=== PATIENT | female | born 1960 | race Caucasian/White ===

== ENCOUNTER 2024-06-17 08:37 | Inpatient (IN) | payer MEDICARE, SELFPAY ==
[2024-06-15] VITALS (9 sets, daily range): BP systolic 101–146; BP diastolic 54–84; BMI 42.7; BMI 41.6
--- NOTE | 2024-06-15 06:33 | ED.GENMED ---
History of Present Illness
General
Chief Complaint: Breathing Problem
Source: patient and ambulance crew
Exam Limitations: none
Time Seen by Provider: 06/15/24 06:22
Nursing documentation reviewed up to this point in time: agreed with
History of Present Illness
History of Present Illness:
63-year-old female presents emergency room complaining of left flank/left-sided chest pain since yesterday. She was sitting working when the pain came on. She denies any specific injury. It hurts when she moves.
Past History
Past History
ED Past Medical History: Hypothyroidism
ED Past Surgical History: Cholecystectomy, , Orthopedic (Tib-fib repair) and Other (Gastric sleeve)
Social History
Tobacco: Non-smoker
Alcohol: None
Drug: None
Personal:
Living: with family
Employment: Employed
Review of Systems
Review of Systems
Allergies reviewed?: Yes
All Other Systems: Not applicable
Constitutional: Reports no symptoms
EENT: Reports no symptoms
Respiratory: Reports trouble breathing
Cardiac: Reports chest pain
ABD/GI: Reports no symptoms
: Reports flank pain; Denies dysuria
Musculoskeletal: Reports no symptoms
Skin: Reports no symptoms
Neurological: Reports no symptoms
Endocrine: Reports no symptoms
Hematologic/Lymphatic: Reports no symptoms
Psychiatric: Reports no symptoms
Phy Exam
Physical Exam
Physical Exam:
Physical Exam
General: no apparent distress, not acutely ill
Neck: supple. no meningeal signs. normal posterior pharynx
Heart: s1/s2 regular rate and rhythm, no murmur. equal radial
pulses.
HEENT: Pupils equal round reactive to light, EOMI
Lungs: no acute respiratory distress. clear bilaterally, left chest wall tender to palpation
Abdomen: normal bowel sounds. not tender. Left CVAT
Neuro: alert and oriented. no focal neurological deficits cranial nerves II through XII intact
Skin: no rash
Psychiatric: well kept. interactive and cooperative
Extremities: no edema. no calf tenderness. negative homans. good distal pulses
Scores
Heart Failure Risk
Heart Failure Risk Score: Not Applicable
Course
Orders/Labs/Results
Orders:
Orders
06/15/24 06:22
Electrocardiogram (*1) Urgent
Reason for Study: Other
Other Reason for Exam: Respiratory Distress
Cardiac Monitoring- Treatment ONCE
EKG- Treatment ONCE
IV Insert/Care/Rem.- Treatment PRN
CR Chest - 2 Views Urgent
Comment:
Reason For Exam: respiratory distress
O2 Therapy [RESP] Urgent
Titrate/Wean O2 to maintain O2 sat greater than (%): 93
Special Instructions: TO MAINTAIN CONTINUOUS O2 SATS >/= 93%
Pulse Ox/cont/shift [RESP] Urgent
Quantity: 1
Special Instructions: continuous pulse ox
06/15/24 06:26
Complete Blood Count/With Diff Urgent
Comprehensive Metabolic Panel Urgent
Lipase Urgent
Comment: ADD ON
NT-proBNP Urgent
Troponin I Urgent
06/15/24 06:32
Add On- LAB Urgent
Tests Added?: lipase
Acetaminophen [Tylenol] 650 mg PO NOW STA
06/15/24 06:40
D-Dimer Urgent
06/15/24 08:18
CT Chest Pe Study Urgent
Comment:
Reason For Exam: left side chest/flank pain ddimer elevated
06/15/24 08:25
Urinalysis Reflex To Culture Urgent
Date Specimen was Collected: 06/15/24
Time Specimen was Collected: 08:06
Urine Microscopic Reflex Cult Urgent
06/15/24 09:43
Blood Culture Urgent
SHERLEY Source: Blood/Venous
Specimen Description:
06/15/24 09:44
Azithromycin 500 mg/250 ml [Zithromax Infusion] 500 mg in 250 ml IV NOW
CefTRIAXone [Rocephin] 1,000 mg IV NOW STA
06/15/24 10:13
Blood Culture Routine
SHERLEY Source: Blood/Venous
Specimen Description:
Abnormal Lab Results
06/15/24 06/15/24 06/15/24
06:26 06:40 08:25
WBC 16.1 H 10^3/uL
(4.8-10.8)
MCHC 32.9 L g/dL
(33.0-37.0)
Abs Immat Gran (auto) 0.1 H 10^3/uL
(0-0.05)
Absolute Neuts (auto) 12.5 H 10^3/uL
(1.4-6.5)
Absolute Monos (auto) 1.2 H 10^3/uL
(0.1-0.6)
Neutrophils % 77.7 H %
(42.2-75.2)
Lymphocytes % 13.2 L %
(20.5-51.1)
D-Dimer 0.97 H ug/mlFEU
(0.00-0.50)
Glucose 123 H mg/dl
(70-99)
AST 37 H U/L
(14-36)
Leukocyte Esterase Rfl Trace A
(Negative)
Urine Bacteria (Reflex) Few A
(Negative)
Urine Yeast Few A
(Negative)
06/15/24 06:26
06/15/24 06:26
Vital Signs
Initial and Last Documented VS:
Initial Vital Signs
Temp Pulse Resp Pulse Ox
99.2 F 89 16 95
06/15/24 06:24 06/15/24 06:24 06/15/24 06:24 06/15/24 06:24
Last Documented Vital Signs
Temp Pulse Resp BP Pulse Ox
99.2 F 81 26 146/78 96
06/15/24 06:24 06/15/24 09:15 06/15/24 09:15 06/15/24 09:08 06/15/24 09:15
MDM/Problems Addressed
Differential Diagnosis Includes:
Pulmonary embolism, pneumonia, kidney stone
MDM/Problems Addressed:
63-year-old female with left lower lobe pneumonia, no signs of PE. Admit to hospitalist.
Chronic conditions affecting care: Previous abdomnial surgery (Gastric sleeve)
*Radiology
Radiology exam reviewed: radiology read reviewed (Chest x-ray and CT chest showed no signs of PE, left lower lobe pneumonia)
*Pulse Oximetry
Patient hypoxic: no
*EKG
Interpreted by ED Provider?: Yes
EKG Intrepretation Date: 06/15/24
EKG Intrepretation Time: 06:33
Interpretation: abnormal
Comparison EKG: no changes
Heart Rate: 88
Rate: normal
Rhythm: sinus
[place]: normal axis
Interval: normal interval
QRS Pattern: normal QRS
Ischemia: no ischemia
*Block Cableman Interpretation
Rate: normal
Interpretation: normal
Heart Rate: 84
Rhythm: sinus
*Critical Care Note
Total Time (30-74mins, 75-104mins- exclusive of procedures): Not Applicable
Patient Management
Social determinants of health affecting care: Living situation
Discussion with other providers: Hospitalist
Escalation/DeEscalation of care consider admission/obs:
admit indicated
ED Attending Note
-
Portions of this chart may have been created with voice recognition software.� Occasional wrong word or��sound alike� substitutions may have occurred due to the inherent limitations of voice recognition software.
Discharge Plan
Departure
Patient Disposition: Admit
Date of Disposition: 06/15/24
Time of Disposition: 10:00
Admit to: Telemetry
Presentation/result/management discussed w/ accepting MD/DO: Hospitalist
Patient with high blood pressure during this ER visit?: Yes
Condition: Fair
Discharge Problem:
Left lower lobe pneumonia
Prescriptions:
No Action
levothyroxine [Synthroid] 137 mcg Tablet
137 mcg PO DAILY
lamotrigine [Lamictal] 100 mg Tablet
100 mg PO DAILY
dextroamphetamine-amphetamine [Adderall XR] 15 mg Capsule,Extended Release 24hr
15 mg PO DAILY
duloxetine 30 mg Capsule,Delayed Release(Dr/Ec)
30 mg PO DAILY
Referrals:
Luis Angel Hawkins DO [Family Provider] -
Interventions
Interventions:
*Risk Screen - Suicide Last Done: 06/15/24 06:24
*General Assessment Last Done: 06/15/24 06:24
*Neglect/Abuse Screening Last Done: 06/15/24 06:24
ED- Fall Risk Assessment Last Done: 06/15/24 06:24
*ED COVID-19 Vaccine History Last Done: 06/15/24 06:24
ED- Cardiac Assessment Last Done: 06/15/24 06:30
ED- Pulmonary Assessment Last Done: 06/15/24 06:30
Discharge Date and Time
Print Language: ALBANIAN
[2024-06-15] MEDS: TYLENOL 650 MG PO ×4 (06:41→22:03)
[2024-06-15 06:56] LABS: % Basophils 0.3 % (0-2); % Eosinophils 1.1 % (0-6); % Immature Granulocytes 0.5 % (0-0.5); % Lymphocytes 13.2 % (20.5-51.1); % Monocytes 7.2 % (1.7-9.3); % Neutrophils 77.7 % (42.2-75.2); Absolute Basophils 0.1 10^3/uL (0-0.2); Absolute Eosinophils 0.2 10^3/uL (0-0.7); Absolute Immature Granulocytes 0.1 10^3/uL (0-0.05); Absolute Lymphocytes 2.1 10^3/uL (1.2-3.4); Absolute Monocytes 1.2 10^3/uL (0.1-0.6); Absolute Neutrophils 12.5 10^3/uL (1.4-6.5); Hemoglobin 13.8 g/dL (12.0-16.0); Mean Corp Hgb Conc. 32.9 g/dL (33.0-37.0); Mean Corpuscular Hgb 27.4 pg (27.0-31.0); Mean Corpuscular Volume 83.3 fL (81.0-99.0); Mean Platelet Volume 9.7 fL (7.4-10.4); Nucleated Red Blood Cells % 0 %; Platelet Count 354 10^3/uL (130-400); Red Blood Cell Count 5.04 10^6/uL (4.20-5.40); Red Cell Dist. Width 13.3 % (11.5-14.5); White Blood Cell Count 16.1 10^3/uL (4.8-10.8)
[2024-06-15 07:01] LABS: ALT (SGPT) 28 U/L (0-35); AST (SGOT) 37 U/L (14-36); Albumin 4.1 g/dl (3.5-5.0); Alkaline Phosphatase 101 U/L (38-126); Blood Urea Nitrogen 16 mg/dl (7-17); Calcium 9.2 mg/dl (8.4-10.2); Carbon Dioxide 26 mmol/L (22-30); Chloride 102 mmol/L (98-107); Estimated Creatinine Clearance 85 ml/min; Glucose 123 mg/dl (70-99); Potassium 4.6 mmol/L (3.5-5.1); Sodium 141 mmol/L (135-145); Total Bilirubin 0.9 mg/dl (0.2-1.3); Total Protein 7.2 g/dl (6.3-8.2); eGFR > 60.00
[2024-06-15 07:13] LABS: NT-proBNP 139 pg/ml; Troponin I < 0.012 ng/ml
[2024-06-15 07:49] LABS: D-Dimer 0.97 ug/mlFEU (0.00-0.50)
[2024-06-15 09:02] LABS: Lipase 54 U/L (23-300)
[2024-06-15 09:07] LABS: Urine Albumin Negative (Neg - Trace); Urine Bilirubin Negative (Negative); Urine Character Clear (Clear); Urine Color Yellow; Urine Glucose Negative (Negative); Urine Ketone Negative (Negative); Urine Leukocyte Trace (Negative); Urine Nitrite Negative (Negative); Urine Occult Blood Negative (Negative); Urine Urobilinogen Negative (Neg - 1+)
[2024-06-15 09:15] LABS: Urine Squamous Cell >30 /LPF (Few)
[2024-06-15 09:16] LABS: Urine Bacteria Few (Negative); Urine Red Blood Cell 0-2 /HPF (0-2); Urine Yeast Few (Negative)
[2024-06-15] MEDS: ZITHROMAX INFUSION 250 IV (10:23)
[2024-06-15] MEDS: ROCEPHIN 1000 MG IV (10:24)
--- NOTE | 2024-06-15 10:29 | HPS.HSE ---
Family Physician
-
Family Physician: Luis Angel Hawkins
Chief Complaint
-
L side chest pain
History of Present Illness
HPI: 63-year-old female with PMH hypothyroidism, depression, ADHD; p/w Left-sided chest pain the day prior while sitting and working.
She denies any specific injury. She endorsed to worsening chest pain with deep inspiration. There may be fever the week prior.
She denies to other symptoms.
Medical History
Past Medical History
Past Medical History: Reports Other
Additional Past Medical History:
hypothyroidism
depression
ADHD
Past Surgical History: Reports Other
Additional Past Surgical History:
Cholecystectomy, , Orthopedic (Tib-fib repair) and Other (Gastric sleeve)
Social History
Tobacco: Non-smoker
Alcohol: None
Living: Alone
Family History
Family History: Not pertinent
Allergies / Home Medications
Allergies reflects when Allergies were last updated in [facility].
Home Medications with original date entered in [facility]
Allergy/Medication List:
Allergies
Allergy/AdvReac Type Severity Reaction Status Date / Time
meperidine [From Demerol] Allergy Nausea / Verified 06/15/24 06:24
Vomiting
morphine Allergy Nausea / Verified 06/15/24 06:24
Vomiting
Home Medications
dextroamphetamine-amphetamine ER 15 mg 24hr capsule,extend release (Adderall XR) 15 mg PO DAILY 06/15/24
duloxetine 30 mg capsule,delayed release 30 mg PO DAILY 06/15/24
lamotrigine 100 mg tablet (Lamictal) 100 mg PO DAILY 06/15/24
levothyroxine 137 mcg tablet (Synthroid) 137 mcg PO DAILY 06/15/24
Review of Systems
-
Respiratory: Reports See HPI (L sided chest pain)
Physical Exam
Vital Signs
Vital Signs
Temp Pulse Resp BP Pulse Ox
37.3 C 81 26 146/78 96
06/15/24 06:24 06/15/24 09:15 06/15/24 09:15 06/15/24 09:08 06/15/24 09:15
Physical Exam
General: Well Developed, Well Nourished, No Apparent Distress, Comfortable, Conversant and Morbidly Obese
HEENT: NormoCephalic, Moist mucous membranes, Atraumatic, Nose Appears Normal and Ears Appear Normal
Respiratory: Clear and Non Labored Respirations; No Accessory Resp Muscle Use
Cardiac: S1/S2 and Regular Rhythm; No Murmur or Rub
GI: Soft, Non Tender, Non Distended and Normal Bowel Sounds; No Organomegaly
Rectal: Deferred by Provider
Musculoskeletal: No Clubbing, No Cyanosis and No Edema
Skin: No Rash
Neuro: Awake, Alert and Nonfocal/grossly intact
Psych: Calm and Intact Judgment/Insight
Laboratory Results
-
06/15/24 06:26
06/15/24 06:26
Laboratory Results
Total Bilirubin 0.9 mg/dl (0.2-1.3) 06/15/24 06:26
AST 37 U/L (14-36) H 06/15/24 06:26
ALT 28 U/L (0-35) 06/15/24 06:26
Alkaline Phosphatase 101 U/L (38-126) 06/15/24 06:26
Troponin I < 0.012 ng/ml 06/15/24 06:26
Lipase 54 U/L (23-300) 06/15/24 06:26
Data Reviewed
-
CT Scan: Report Reviewed by me
Lab Data: Labs Reviewed by me
Impression/Plan
-
HPI: 63-year-old female with PMH hypothyroidism, depression, ADHD; p/w Left-sided chest pain the day prior while sitting and working.
She denies any specific injury. She endorsed to worsening chest pain with deep inspiration. There may be fever the week prior.
She denies to other symptoms.
CT Chest:
There is moderate left basilar pneumonia
There is no central pulmonary embolism
Evaluation for peripheral pulmonary emboli is limited by suboptimal timing of the contrast bolus
5 cm left [place]dale[place] hernia
A/P:
# L sided chest pain due to L basilar pneumonia
Check COVID, check MRSA screen
cont ceftriaxone ceftriaxone and doxycycline
follow blood cultures
Duonebs ATC and PRN
Mucinex
# hypothyroidism
cont Synthroid
# depression
# ADHD
Cont EMPLOYEE COMMUNICATIONS SPECIALIST Lamictal, duloxetine, Addrell
DVT ppx: Lovenox SQ
FC
[2024-06-15 11:50] LABS: COVID-19 Antigen Negative (Negative)
[2024-06-15] MEDS: CYMBALTA DELAYED RELEASE 30 MG PO (13:14)
[2024-06-15] MEDS: LAMICTAL 100 MG PO (13:15)
[2024-06-15] MEDS: SYNTHROID 137 MCG PO (13:15)
[2024-06-15] MEDS: VIBRAMYCIN 260 MG IV (14:30)
[2024-06-15] MEDS: DUONEB INH (15:27)
[2024-06-15] MEDS: DUONEB 3 ML INH ×2 (15:28→20:37)
--- NOTE | 2024-06-15 16:01 | PTCARENOTE ---
Rec'd pt from Ed. Pt provided tylenol for pain with positive results. Pt instructed to call rn for assistance. pt verbalized understanding. call zavala placed within reach, pt rings devon.
[2024-06-15] MEDS: LOVENOX 40 MG SC (17:50)
[2024-06-15] MEDS: MUCINEX 1200 MG PO (20:24)
[2024-06-16] MEDS: VIBRAMYCIN 260 MG IV ×2 (00:26→12:27)
[2024-06-16] MEDS: SYNTHROID 137 MCG PO (06:27)
[2024-06-16] MEDS: TYLENOL 650 MG PO ×4 (06:29→22:22)
[2024-06-16 07:38] VITALS: BP 129/68
[2024-06-16] MEDS: MUCINEX 1200 MG PO ×2 (07:38→19:28)
[2024-06-16] MEDS: CYMBALTA DELAYED RELEASE 30 MG PO (07:38)
[2024-06-16] MEDS: LAMICTAL 100 MG PO (07:38)
[2024-06-16] MEDS: DUONEB 3 ML INH (07:54)
[2024-06-16 07:59] LABS: % Basophils 0.3 % (0-2); % Eosinophils 0.8 % (0-6); % Immature Granulocytes 0.6 % (0-0.5); % Lymphocytes 14.9 % (20.5-51.1); % Neutrophils 75.4 % (42.2-75.2); Absolute Eosinophils 0.1 10^3/uL (0-0.7); Absolute Immature Granulocytes 0.1 10^3/uL (0-0.05); Absolute Lymphocytes 2.3 10^3/uL (1.2-3.4); Absolute Monocytes 1.2 10^3/uL (0.1-0.6); Absolute Neutrophils 11.8 10^3/uL (1.4-6.5); Hematocrit 36.3 % (37.0-47.0); Mean Corp Hgb Conc. 33.1 g/dL (33.0-37.0); Mean Corpuscular Hgb 27.4 pg (27.0-31.0); Mean Corpuscular Volume 82.9 fL (81.0-99.0); Mean Platelet Volume 9.7 fL (7.4-10.4); Nucleated Red Blood Cells % 0 %; Platelet Count 310 10^3/uL (130-400); Red Blood Cell Count 4.38 10^6/uL (4.20-5.40); Red Cell Dist. Width 13.4 % (11.5-14.5); White Blood Cell Count 15.6 10^3/uL (4.8-10.8)
[2024-06-16 08:27] LABS: Blood Urea Nitrogen 16 mg/dl (7-17); Calcium 8.9 mg/dl (8.4-10.2); Carbon Dioxide 22 mmol/L (22-30); Chloride 103 mmol/L (98-107); Estimated Creatinine Clearance 84 ml/min; Glucose 105 mg/dl (70-99); Potassium 4.1 mmol/L (3.5-5.1); Sodium 139 mmol/L (135-145); eGFR > 60.00
[2024-06-16 09:13] LABS: Hepatitis C Antibody Negative (Negative)
[2024-06-16 09:18] VITALS: BP 108/72; PULSE 93; O2SAT 94
--- NOTE | 2024-06-16 09:20 | W.PN.HOSP.TC ---
Today's Communication/Plan
-
see A/P
Assessment / Plan
Assessment / Plan
HPI: 63-year-old female with PMH hypothyroidism, depression, ADHD; p/w Left-sided chest pain the day prior while sitting and working.
She denies any specific injury. She endorsed to worsening chest pain with deep inspiration. There may be fever the week prior.
She denies to other symptoms.
CT Chest:
There is moderate left basilar pneumonia
There is no central pulmonary embolism
Evaluation for peripheral pulmonary emboli is limited by suboptimal timing of the contrast bolus
5 cm left [place]dale[place] hernia
A/P:
# L sided chest pain due to L basilar pneumonia
COVID neg
follow MRSA screen
cont ceftriaxone and doxycycline
follow blood cultures
Cont Duonebs ATC and PRN
Mucinex
# Orthopnea, likely related to CAP
check echo
# hypothyroidism
cont Synthroid
# depression
# ADHD
Cont CORRECTIONAL CAPTAIN Lamictal, duloxetine, Addrell
DVT ppx: Lovenox SQ
FC
DW sister on the phone
Anticipated Discharge: 24 - 48 hours
Subjective/Interval History
-
Date of Service: June 16, 2024
Objective Data
-
Labs:
Laboratory Results
06/16/24
07:26
WBC 15.6 H
Hgb 12.0
Hct 36.3 L
Plt Count 310
Sodium 139
Potassium 4.1
Chloride 103
Carbon Dioxide 22
BUN 16
Creatinine 0.9
Glucose 105 H
Calcium 8.9
Vital Signs:
Vital Signs
Temp Pulse Resp BP Pulse Ox
36.8 C 71 14 129/68 93
06/16/24 07:38 06/16/24 07:44 06/16/24 07:44 06/16/24 07:38 06/16/24 07:44
I&O
06/15/24 06/16/24 06/17/24
06:59 06:59 06:59
Intake Total 960 / 960
Balance 960 / 960
Review of Systems
-
Respiratory: Reports Pleurisy (L side chest pain with deep inspiration )
Physical Exam
-
General: Well Developed, Well Nourished, No Apparent Distress, Comfortable, Conversant and Morbidly Obese; Negative Respiratory Distress
HEENT: Normocephalic, Atraumatic, Nose Appears Normal and Ears Appear Normal; Negative Oxygen
Respiratory: Clear to Auscultation, Crackles (L lower lobe) and Non Labored Respirations; Negative Accessory Resp Muscle Use
Cardiac: Regular Rhythm and S1/S2
GI: Soft, Nontender, Nondistended and Normal Bowel Sounds
Skin: Warm and Dry
Neuro: Awake, Alert, Oriented, AO x 3 and Nonfocal/Grossly Intact
Psych: Calm and Intact Judgement/Insight
Data Reviewed
-
CT Scan: Report Reviewed by me
Labs: Labs Reviewed by me
[2024-06-16] MEDS: STERILE WATER FOR INJECTION 10 ML IV (09:30)
[2024-06-16] MEDS: ROCEPHIN 1000 MG IV (09:31)
[2024-06-16 09:38] VITALS: BP 108/72; PULSE 89; O2SAT 94
--- NOTE | 2024-06-16 09:48 | CM ---
Patient seen bedside.
IA completed.
Dx chest pain. still with left sided discomfort.
Patient lives.alone in a story home with 2 steps to enter with b/l hand rails.
6 steps, landing 8 steps to second floor, hand rails on stairs.
Independent prior to admission without assistive devicwes.
Patient works, drives.
Patient has no hx VN or rehab.
PT/OT recommending home with Home care vs nop needs.
Patient denies home care needs.
[facility] completed.
PCP: Dr Hawkins
[facility] [place]
Plan: home no needs
[2024-06-16 15:20] VITALS: BP 134/74
[2024-06-16] MEDS: LOVENOX 40 MG SC (17:17)
[2024-06-16 23:07] VITALS: BP 138/71
[2024-06-17] MEDS: VIBRAMYCIN 260 MG IV (01:17)
[2024-06-17] MEDS: SYNTHROID 137 MCG PO (05:30)
[2024-06-17] MEDS: TYLENOL 650 MG PO ×3 (05:33→20:19)
[2024-06-17 06:48] VITALS: BP 137/71
[2024-06-17 07:10] LABS: % Basophils 0.1 % (0-2); % Eosinophils 1.8 % (0-6); % Immature Granulocytes 0.4 % (0-0.5); % Lymphocytes 15.9 % (20.5-51.1); % Monocytes 7.3 % (1.7-9.3); % Neutrophils 74.5 % (42.2-75.2); Absolute Eosinophils 0.2 10^3/uL (0-0.7); Absolute Immature Granulocytes 0.1 10^3/uL (0-0.05); Absolute Lymphocytes 2.2 10^3/uL (1.2-3.4); Absolute Neutrophils 10.1 10^3/uL (1.4-6.5); Hematocrit 37.3 % (37.0-47.0); Hemoglobin 12.2 g/dL (12.0-16.0); Mean Corp Hgb Conc. 32.7 g/dL (33.0-37.0); Mean Corpuscular Hgb 27.2 pg (27.0-31.0); Mean Corpuscular Volume 83.1 fL (81.0-99.0); Mean Platelet Volume 10.1 fL (7.4-10.4); Nucleated Red Blood Cells % 0 %; Platelet Count 342 10^3/uL (130-400); Red Blood Cell Count 4.49 10^6/uL (4.20-5.40); Red Cell Dist. Width 13.3 % (11.5-14.5); White Blood Cell Count 13.6 10^3/uL (4.8-10.8)
[2024-06-17 07:26] LABS: Blood Urea Nitrogen 14 mg/dl (7-17); Calcium 8.8 mg/dl (8.4-10.2); Carbon Dioxide 21 mmol/L (22-30); Chloride 104 mmol/L (98-107); Estimated Creatinine Clearance 94 ml/min; Glucose 106 mg/dl (70-99); Potassium 4.4 mmol/L (3.5-5.1); Sodium 141 mmol/L (135-145); eGFR > 60.00
[2024-06-17] MEDS: LAMICTAL 100 MG PO (08:37)
[2024-06-17] MEDS: MUCINEX 1200 MG PO ×2 (08:37→20:16)
[2024-06-17] MEDS: CYMBALTA DELAYED RELEASE 30 MG PO (08:37)
--- NOTE | 2024-06-17 09:23 | W.PN.HOSP.TC ---
Today's Communication/Plan
-
IV antibiotics.
Assessment / Plan
Assessment / Plan
Physical exam:
General: Acutely ill but nontoxic
HEENT: Normocephalic, Atraumatic and Moist Mucous Membranes
Respiratory: Left crackles; Negative Wheezes, Rales or Rhonchi
Cardiac: Regular Rhythm and S1/S2
GI: Soft, Nontender and Nondistended
Musculoskeletal: No Clubbing, No Cyanosis and No Edema
Neuro: Awake, Alert and Oriented
Psych: Calm
HPI: 63-year-old female with PMH hypothyroidism, depression, ADHD; p/w Left-sided chest pain the day prior while sitting and working.
She denies any specific injury. She endorsed to worsening chest pain with deep inspiration. There may be fever the week prior.
She denies to other symptoms.
CT Chest:
There is moderate left basilar pneumonia
There is no central pulmonary embolism
Evaluation for peripheral pulmonary emboli is limited by suboptimal timing of the contrast bolus
5 cm left [place] hernia
A/P:
# L sided chest pain due to L basilar pneumonia
COVID neg
follow MRSA screen
cont ceftriaxone and doxycycline for one more day in the hospital.
follow blood cultures
Cont Duonebs ATC and PRN
Mucinex
# Orthopnea, likely related to CAP
check echo--> normal echo
# hypothyroidism
cont Synthroid
# depression
# ADHD
Cont ENERGY ENGINEER Lamictal, duloxetine, Addrell
DVT ppx: Lovenox SQ
FC
DW sister on the phone
Anticipated Discharge: 24 - 48 hours
Subjective/Interval History
-
Date of Service: June 17, 2024
Patient feels better overall, less cough and shortness of breath. Afebrile
Objective Data
-
Labs:
Laboratory Results
06/17/24
06:09
WBC 13.6 H
Hgb 12.2
Hct 37.3
Plt Count 342
Sodium 141
Potassium 4.4
Chloride 104
Carbon Dioxide 21 L
BUN 14
Creatinine 0.8
Glucose 106 H
Calcium 8.8
Vital Signs:
Vital Signs
Temp Pulse Resp BP Pulse Ox
98.7 F 74 18 137/71 93
06/17/24 06:48 06/17/24 06:48 06/17/24 06:48 06/17/24 06:48 06/17/24 06:48
I&O
06/16/24 06/17/24 06/18/24
06:59 06:59 06:59
Intake Total 960 / 960 850 / 850
Balance 960 / 960 850 / 850
[2024-06-17] MEDS: STERILE WATER FOR INJECTION 10 ML IV (09:36)
[2024-06-17] MEDS: ROCEPHIN 1000 MG IV (09:36)
[2024-06-17] MEDS: VIBRAMYCIN 100 MG PO ×2 (11:44→20:16)
--- NOTE | 2024-06-17 11:56 | CM ---
Chart reviewed and plan is to home when stable.
Plan; Home when stable.
[2024-06-17 14:46] VITALS: BP 143/70
[2024-06-17 15:27] VITALS: BP 125/63
[2024-06-17] MEDS: LOVENOX 40 MG SC (16:49)
[2024-06-17 23:15] VITALS: BP 124/62
[2024-06-18] MEDS: SYNTHROID 137 MCG PO (05:42)
[2024-06-18 07:25] VITALS: BP 138/83
[2024-06-18] MEDS: CYMBALTA DELAYED RELEASE 30 MG PO (07:28)
[2024-06-18] MEDS: LAMICTAL 100 MG PO (07:28)
[2024-06-18] MEDS: VIBRAMYCIN 100 MG PO (07:28)
[2024-06-18] MEDS: MUCINEX 1200 MG PO (07:29)
[2024-06-18 07:56] LABS: % Basophils 0.4 % (0-2); % Eosinophils 2.9 % (0-6); % Immature Granulocytes 0.5 % (0-0.5); % Lymphocytes 20.6 % (20.5-51.1); % Monocytes 6.9 % (1.7-9.3); % Neutrophils 68.7 % (42.2-75.2); Absolute Eosinophils 0.3 10^3/uL (0-0.7); Absolute Immature Granulocytes 0.1 10^3/uL (0-0.05); Absolute Lymphocytes 2.2 10^3/uL (1.2-3.4); Absolute Monocytes 0.7 10^3/uL (0.1-0.6); Absolute Neutrophils 7.2 10^3/uL (1.4-6.5); Hematocrit 38.5 % (37.0-47.0); Hemoglobin 12.5 g/dL (12.0-16.0); Mean Corp Hgb Conc. 32.5 g/dL (33.0-37.0); Mean Corpuscular Hgb 27.2 pg (27.0-31.0); Mean Corpuscular Volume 83.9 fL (81.0-99.0); Mean Platelet Volume 9.8 fL (7.4-10.4); Nucleated Red Blood Cells % 0 %; Platelet Count 390 10^3/uL (130-400); Red Blood Cell Count 4.59 10^6/uL (4.20-5.40); Red Cell Dist. Width 13.4 % (11.5-14.5); White Blood Cell Count 10.5 10^3/uL (4.8-10.8)
[2024-06-18 08:30] LABS: Blood Urea Nitrogen 14 mg/dl (7-17); Calcium 9.3 mg/dl (8.4-10.2); Carbon Dioxide 25 mmol/L (22-30); Chloride 103 mmol/L (98-107); Estimated Creatinine Clearance 84 ml/min; Glucose 100 mg/dl (70-99); Potassium 4.7 mmol/L (3.5-5.1); Sodium 141 mmol/L (135-145); eGFR > 60.00
--- NOTE | 2024-06-18 08:49 | W.PN.HOSP.TC ---
Today's Communication/Plan
-
Discharge planning today
Assessment / Plan
Assessment / Plan
Physical exam:
General: No acute distress
HEENT: Normocephalic, Atraumatic and Moist Mucous Membranes
Respiratory: Left crackles; Negative Wheezes, Rales or Rhonchi
Cardiac: Regular Rhythm and S1/S2
GI: Soft, Nontender and Nondistended
Musculoskeletal: No Clubbing, No Cyanosis and No Edema
Neuro: Awake, Alert and Oriented
Psych: Calm
HPI: 63-year-old female with PMH hypothyroidism, depression, ADHD; p/w Left-sided chest pain the day prior while sitting and working.
She denies any specific injury. She endorsed to worsening chest pain with deep inspiration. There may be fever the week prior.
She denies to other symptoms.
CT Chest:
There is moderate left basilar pneumonia
There is no central pulmonary embolism
Evaluation for peripheral pulmonary emboli is limited by suboptimal timing of the contrast bolus
5 cm left [place]dalek hernia
A/P:
# L sided chest pain due to L basilar pneumonia
COVID neg
follow MRSA screen
cont ceftriaxone and doxycycline and changed to oral. Plan to discharge today
follow blood cultures and no growth
Cont Duonebs ATC and PRN
Mucinex
# Orthopnea, likely related to CAP
check echo--> normal echo
# hypothyroidism
cont Synthroid
# depression
# ADHD
Cont NEIGHBORHOOD PLANNER Lamictal, duloxetine, Addrell
DVT ppx: Lovenox SQ
FC
DW sister on the phone
Anticipated Discharge: Today
Subjective/Interval History
-
Date of Service: June 18, 2024
Patient feels better overall. Afebrile.
Objective Data
-
Labs:
Laboratory Results
06/18/24
07:28
WBC 10.5
Hgb 12.5
Hct 38.5
Plt Count 390
Sodium 141
Potassium 4.7
Chloride 103
Carbon Dioxide 25
BUN 14
Creatinine 0.9
Glucose 100 H
Calcium 9.3
Vital Signs:
Vital Signs
Temp Pulse Resp BP Pulse Ox
98.1 F 71 19 138/83 96
06/18/24 07:25 06/18/24 07:25 06/18/24 07:25 06/18/24 07:25 06/18/24 07:25
I&O
06/17/24 06/18/24 06/19/24
06:59 06:59 06:59
Intake Total 850 / 850 960 / 960
Balance 850 / 850 960 / 960
[2024-06-18] MEDS: ROCEPHIN 1000 MG IV (09:29)
[2024-06-18] MEDS: STERILE WATER FOR INJECTION 10 ML IV (09:29)
--- NOTE | 2024-06-18 11:32 | CM ---
Home no needs when stable.
Plan; Home no needs when stable.
--- NOTE | 2024-06-18 13:15 | W.DCSUMMARY ---
Discharge Summary
Discharge Data
Date of Admission: 06/17/24
Date of Discharge: 06/18/24
-
Pending Results: No
Hospital Course
Patient is 63 years old female with history of depression, hypothyroidism, ADHD, presented to the heart with left-sided chest discomfort and subjective fevers and leukocytosis. Patient was diagnosed with pneumonia. She was treated appropriately
with IV antibiotics. Her WBC trended down from 15 to 10. She had an echocardiogram unremarkable. She did well rest of the hospital stay. She will be discharged in stable condition today.
Discharge duration: 35 minutes
Discharge Plan
-
Patient Disposition: Home (Routine Discharge)
Discharge Diagnosis/Procedures: Pneumonia.
Diet: Low Cholesterol
Activity: As tolerated
Blood Work: Please PCP to order CBC, BMP within 1 week
Referrals:
Luis Angel Hawkins, DO [Family Provider] - in less than 1 week
Prescriptions:
New
doxycycline hyclate 100 mg Capsule
100 mg PO BID 2 Days Qty: 4 0RF
cefdinir 300 mg Capsule
300 mg PO Q12 4 Days Qty: 8 0RF
Continued
levothyroxine [Synthroid] 137 mcg Tablet
137 mcg PO DAILY
lamotrigine [Lamictal] 100 mg Tablet
100 mg PO DAILY
dextroamphetamine-amphetamine [Adderall XR] 15 mg Capsule,Extended Release 24hr
15 mg PO DAILY
duloxetine 30 mg Capsule,Delayed Release(Dr/Ec)
30 mg PO DAILY
Discharge Orders:
Discharge Patient (As Directed); Ordered 06/18/24
Ordered By: Jimmy Lezama
Discharge Date and Time
Print Language: MALTESE
[2024-06-18 15:29] VITALS: BP 135/82
== END 2024-06-18 16:46 | disposition home or self-care (01) | DRG 194 ==
LOC: 4 WEST ACU 08:37
PROVIDERS: ADMITTING PHYSICIAN Internal Medicine; ATTENDING PHYSICIAN Hospitalist; EMERGENCY PHYSICIAN Emergency Medicine; FAMILY PHYSICIAN Family Medicine
DX: J18.9 Pneumonia, unspecified organism (principal); Z68.41 Body mass index [BMI] 40.0-44.9, adult; E03.9 Hypothyroidism, unspecified; F32.A Depression, unspecified; F90.9 Attention-deficit hyperactivity disorder, unspecified type; E66.01 Morbid (severe) obesity due to excess calories; R06.01 Orthopnea; Z88.5 Allergy status to narcotic agent; Z88.8 Allergy status to other drugs, medicaments and biological substances; Z79.890 Hormone replacement therapy; Z11.52 Encounter for screening for COVID-19
CPT/HCPCS: 71046; 71275; 80048; 80053; 81003; 81015; 83690; 83880; 84484; 85025; 85379; 86803; 87040; 87070; 87811; 93005; 93306; 94640; 96374; 96375; 97116; 97162; 97166; 97535; 99285; Q9967